=== PATIENT | male | born 1970 | race Caucasian/White ===

== ENCOUNTER 2024-11-27 13:32 | Emergency (ER) | payer OTHER, SELFPAY ==
[2024-11-27] VITALS (8 sets, daily range): BP systolic 98–167; BP diastolic 60–93; PULSE 66–78; RESP 12–17; TEMP 36.7; O2SAT 95–100; BMI 25.0
--- NOTE | 2024-11-27 14:21 | XRR_ITS ---
PROCEDURE INFORMATION: Exam: XR Chest Exam date and time: 11/27/2024 2:34 PM Age: 54 years old Clinical indication: Chest pressure; Patient HX: Sudden onset chest pain; Epigastric pain TECHNIQUE: Imaging protocol: Radiologic exam of the chest. Views: 1 view. COMPARISON: No relevant prior studies available. FINDINGS: Lungs: Unremarkable. No consolidation. Pleural spaces: Unremarkable. No pleural effusion. No pneumothorax. Heart/Mediastinum: Unremarkable. No cardiomegaly. Bones/joints: Unremarkable. XR/XR chest 1V portable [id number] IMPRESSION: No acute cardiopulmonary disease.
--- NOTE | 2024-11-27 14:21 | ECG_ITS ---
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 Measurements Intervals [place] Rate: 71 P: 69 LA: 139 QRS: 75 QRSD: 103 T: 57 QT: 368 QTc: 401 Interpretive Statements SINUS RHYTHM No previous ECG available for comparison Electronically Signed On 11-28-2024 17:11:42 AERIAL INSTALLER by Aayush Smart M.D. [email or web address]
[2024-11-27] MEDS: aspirin 81 mg Chew Tablet 324 MG PO (14:36)
[2024-11-27] MEDS: lidocaine 2% viscous 15 ML, aluminum-mag hydrox-simethicon 30 ML, sucralfate oral liq 1 GM PO (14:37)
[2024-11-27 14:50] LABS: Basophils # 0.1 10^3/uL (0.0-0.1); Basophils % 0.7 %; Eosinophils # 0.2 10^3/uL (0.0-0.8); Eosinophils % 2.3 %; Hematocrit 42.9 % (37-53); Lymphocytes # 1.5 10^3/uL (0.8-4.8); Lymphocytes % 20.9 %; Mean Corpuscular Hemoglobin 32.7 pg (27-33); Mean Corpuscular Volume 93.5 fl (82-101); Mean Platelet Volume 9.3 fL (7.4-10.4); Monocytes # 0.8 10^3/uL (0.2-0.9); Monocytes % 10.6 %; Neutrophils # 4.77 10^3/uL (1.8-7.7); Neutrophils % 64.8 %; Nucleated Red Blood Cells % 0 %; Platelet Count 211 10^3/cmm (157-399); Red Blood Count 4.59 10^6/uL (3.85-5.65); Red Cell Distribution Width 12.4 % (12.1-15.1); White Blood Count 7.36 10^3/uL (3.29-11.43)
[2024-11-27 14:59] LABS: INR 0.94 (0.8-1.2)
[2024-11-27 15:00] LABS: Partial Thromboplastin Time 35.2 SECONDS (23.9-36.7)
[2024-11-27 15:05] LABS: Troponin(5th) Baseline < 6 ng/L (0-15)
[2024-11-27 15:17] LABS: Alanine Aminotransferase 21 U/L (0-41); Albumin Level 4.4 g/dL (3.5-5.2); Alkaline Phosphatase 59 U/L (40-130); Blood Urea Nitrogen 10 mg/dL (6-20); Calcium 9.2 mg/dL (8.5-10.5); Carbon Dioxide 24 mmol/L (22-29); Chloride 90 mmol/L (98-107); Creatinine Clr Calc Pharmacy 88.0172; Globulin 1.9 g/dL (1.3-4.6); Glucose 130 mg/dL (65-115); Lipase 25 U/L (13-60); NT Pro B Type Natriuretic Pept < 36 pg/mL (0-125); Osmolality Calculated 285 mOsm/kg (285-295); Sodium 137 mmol/L (136-145); Total Bilirubin 0.9 mg/dL (0.15-1.2); Total Protein 6.3 g/dL (6.6-8.7)
[2024-11-27 15:18] LABS: Aspartate Amino Transferase 19 U/L (0-40)
--- NOTE | 2024-11-27 16:26 | ECG_ITS ---
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 Measurements Intervals [place] Rate: 77 P: 73 MA: 139 QRS: 74 QRSD: 110 T: 69 QT: 358 QTc: 407 Interpretive Statements SINUS RHYTHM WITH SINUS ARRHYTHMIA NONSPECIFIC T-WAVE ABNORMALITY Compared to ECG 11/27/2024 13:36:18 T-wave abnormality now present Electronically Signed On 11-28-2024 17:25:03 SERVICE DESK LEAD by Aayush mSart M.D. [email or web address]
[2024-11-27 16:39] LABS: Troponin 5 2HR Delta 0.00001 ABS# (0-10)
--- NOTE | 2024-11-27 16:49 | W.ED.CHESTPA ---
HPI - Chest Pain General: Chief Complaint: Chest Pain Stated Complaint: chest pain Time Seen by Provider: 11/27/24 13:49 History of Present Illness: This patient is a 54-year-old white male who presents to the emergency department with chest discomfort. He states this started at 8:00 this morning. States it feels like a pulled muscle. He has been doing a lot of belching as well. He has some mild shortness of breath. Patient has no prior cardiac history. He has no chronic medical problems. Patient does smoke 1 pack of cigarettes per day and does drink alcohol on a daily basis. Related Data Home Medications Medication Instructions Recorded Confirmed ibuprofen 200 mg tablet 200 mg PO Q6H PRN Pain 11/27/24 11/27/24 Previous Rx's Medication Instructions Recorded omeprazole magnesium 10 mg oral 20 mg PO DAILY #30 ea 11/27/24 suspension,delayed release (Prilosec) Allergies Allergy/AdvReac Type Severity Reaction Status Date / Time amoxicillin Allergy ALGY-Rash Verified 11/27/24 13:43 Review of Systems General: Reports: 10 or more systems reviewed and unremarkable except in HPI and below Card: Reports: chest pain GI: Reports: belching Physical Exam Const: COMMON NORMALS: no acute distress, patient oriented x3 and no limitations GENERAL APPEARANCE: cooperative and comfortable HENMT: COMMON NORMALS: normocephalic, atraumatic, Normal nasal mucous membranes and turbinates present, moist oral mucous membranes and oropharynx normal HEAD & SCALP: normal to inspection, normocephalic and atraumatic FACE & SINUS: normal facial exam NOSE: Normal nasal mucous membranes and turbinates present Eye: COMMON NORMALS: Equal, round and reactive pupils present, EOMs intact bilaterally and conjunctivae normal GENERAL EYE: appearance normal, both eyes and all related structures CONJUNCTIVA: Yes conjunctivae normal PUPIL: Yes Equal, round and reactive pupils present Neck/C-Spine: COMMON NORMALS: supple and no JVD Chest: COMMONS NORMALS: normal inspection of the chest Resp: COMMON NORMALS: normal respiratory effort and clear to auscultation bilaterally AUSCULTATION: clear to auscultation bilaterally Cardio: COMMON NORMALS: no JVD, regular rate, regular rhythm, No gallops present (Cardio), No murmurs present (Cardio) and No rub (Cardio) RATE: regular rate RHYTHM: regular rhythm GI: COMMON NORMALS: Normal to inspection, nondistended, normoactive bowel sounds present, Soft to palpation and non-tender AUSCULTATION: Yes normoactive bowel sounds PALPATION: Yes Soft to palpation : COMMON NORMALS: Yes no CVA tenderness BLADDER/KIDNEY EXAM: Yes no CVA tenderness Back/Pelvis: COMMON NORMALS: no CVA tenderness and thoracic and lumbar spine normal to inspection Extremity: COMMON NORMALS: normal to inspection Neuro: COMMON NORMALS: patient oriented x3 and CN's II-XII intact bilaterally Psych: COMMON NORMALS: mental status grossly normal, Normal thought process present and cooperative THOUGHT PROCESS: Normal thought process present Skin: COMMON NORMALS: no rashes or lesions noted, turgor normal and no jaundice GENERAL SKIN EXAM: no rashes or lesions noted and turgor normal Course Vital Signs: Vital signs: Vital Signs Temperature 98.1 F 11/27/24 13:38 Pulse Rate 71 11/27/24 16:00 Respiratory Rate 16 11/27/24 16:00 Blood Pressure 115/83 11/27/24 16:00 Pulse Oximetry 98 11/27/24 16:00 Oxygen Delivery Me thod Room Air 11/27/24 13:38 MDM - Chest Pain Medical Decision Making EKG revealed normal sinus rhythm with no ST segment abnormalities. Chest x-ray was normal. CBC and CMP normal. Coags normal. Lipase 25. BNP less than 6. Baseline troponin less than 6. 2-hour level of 6. Patient was given a GI cocktail which did alleviate his symptoms. This chest discomfort is likely secondary to gastritis or GERD. I discussed this with him. We will place him on Prilosec. I did recommend he follow-up with his primary care provider later this week for recheck. If he continues to have these symptoms he may need a cardiac stress test. He was discharged in stable condition. Lab Data 11/27/24 14:30 11/27/24 14:30 Radiology Impressions Chest X-Ray 11/27/24 14:21 IMPRESSION: No acute cardiopulmonary disease. Laboratory Results WBC 7.36 10^3/uL (3.29-11.43) 11/27/24 14:30 RBC 4.59 10^6/uL (3.85-5.65) 11/27/24 14:30 Hgb 15.00 g/dL (11.27-16.99) 11/27/24 14:30 Hct 42.9 % (37-53) 11/27/24 14:30 MCV 93.5 fl (82-101) 11/27/24 14:30 MCH 32.7 pg (27-33) 11/27/24 14: MCHC 35.0 g/dL (30-55) 11/27/24 14:30 RDW 12.4 % (12.1-15.1) 11/27/24 14:30 Plt Count 211 10^3/cmm (157-399) 11/27/24 14: MPV 9.3 fL (7.4-10.4) 11/27/24 14:30 Neut % (Auto) 64.8 % 11/27/24 14:30 Lymph % (Auto) 20.9 % 11/27/24 14:30 [place] % (Auto) 10.6 % 11/27/24 14:30 Eos % (Auto) 2.3 % 11/27/24 14:30 Baso % (Auto) 0.7 % 11/27/24 14:30 Neut # (Auto) 4.77 10^3/uL (1.8-7.7) 11/27/24 14:30 Lymph # (Auto) 1.5 10^3/uL (0.8-4.8) 11/27/24 14:30 [place] # (Auto) 0.8 10^3/uL (0.2-0.9) 11/27/24 14:30 Eos # (Auto) 0.2 10^3/uL (0.0-0.8) 11/27/24 14:30 Baso # (Auto) 0.1 10^3/uL (0.0-0.1) 11/27/24 14:30 Nucleated RBC % (auto) 0 % 11/27/24 14: Nucleated RBCs # 0.0 /100WBC 11/27/24 14:30 PT 13.30 SECONDS (12.1-14.9) 11/27/24 14:30 INR 0.94 (0.8-1.2) 11/27/24 14:30 APTT 35.2 SECONDS (23.9-36.7) 11/27/24 14:30 Sodium 137 mmol/L (136-145) 11/27/24 14:30 Potassium 4.0 mmol/L (3.5-5.1) 11/27/24 14:30 Chloride 90 mmol/L (98-107) L 11/27/24 14:30 Carbon Dioxide 24 mmol/L (22-29) 11/27/24 14:30 Anion Gap 27.0 (5-19) H 11/27/24 14:30 BUN 10 mg/dL (6-20) 11/27/24 14:30 Creatinine 1.1 mg/dL (0.7-1.2) 11/27/24 14:30 GFR Calculation 70.0 mL/min (90-130) L 11/27/24 14:30 Glucose 130 mg/dL (65-115) H 11/27/24 14:30 Calculated Osmolality 285 mOsm/kg (285-295) 11/27/24 14:30 Calcium 9.2 mg/dL (8.5-10.5) 11/27/24 14:30 Total Bilirubin 0.9 mg/dL (0.15-1.2) 11/27/24 14:30 AST 19 U/L (0-40) 11/27/24 14:30 ALT 21 U/L (0-41) 11/27/24 14:30 Alkaline Phosphatase 59 U/L (40-130) 11/27/24 14:30 Troponin T Baseline < 6 ng/L (0-15) 11/27/24 14:30 Troponin T 120 Minute 6.00 ng/L (0-15) 11/27/24 16:16 Delta Troponin T 0.79031 ABS# (0-10) 11/27/24 16:16 NT-Pro-B Natriuret Pep < 36 pg/mL (0-125) 11/27/24 14:30 Total Protein 6.3 g/dL (6.6-8.7) L 11/27/24 14:30 Albumin 4.4 g/dL (3.5-5.2) 11/27/24 14:30 Globulin 1.9 g/dL (1.3-4.6) 11/27/24 14:30 Lipase 25 U/L (13-60) 11/27/24 14:30 All radiology interpretation(s) finalized by discharge Discharge Plan Discharge Patient Disposition: Home Clinical Impression: Chest pain due to GERD Condition: Stable Prescriptions: New Prilosec 10 mg susp,delayed release for recon 20 mg PO DAILY Qty: 30 2RF No Action ibuprofen 200 mg Tablet 200 mg PO Q6H PRN (Reason: Pain) Discharge Orders: Discharge ED (Routine); Ordered 11/27/24 Ordered By: Daniel Obregon Referrals: Carlos Shultz MD [Family Provider] - Activity Restrictions/Additional Instructions: Follow-up with your primary care provider later this week for recheck. If you continue to have these symptoms you may need a cardiac stress test. 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
== END 2024-11-27 17:14 | disposition home or self-care (01) ==
PROVIDERS: Emergency Provider Emergency Medicine; Family Provider Urology
DX: K21.9 Gastro-esophageal reflux disease without esophagitis (principal)
CPT/HCPCS: 36415; 71045; 80053; 83690; 83880; 84484; 85025; 85610; 85730; 93005; 99285